=== PATIENT | female | born 1990 | race Caucasian/White ===

== ENCOUNTER 2017-07-22 18:18 | Emergency (ER) | payer OTHER ==
[~2017-07-22] VITALS: Ht 162.6 cm; Wt 100.0 kg
[~2017-07-22 18:18] MED LIST: BCP
[2017-07-22] MEDS ORDERED: ZIPRASIDONE 20 MG INJ IM ONE ×2 (18:30→19:01)
[2017-07-22] MEDS ORDERED: SODIUM CHLORIDE 0.9% 1,000ML IVBOLUS ONE (18:30)
[2017-07-22] MEDS ORDERED: SODIUM CHLORIDE FLUSH 10ML SYR IVF ONE (18:30)
[2017-07-22 18:58] LABS: HEMATOCRIT 43.5 % (34.6-47.8); HEMOGLOBIN 13.8 g/dL (11.7-16.4)
[2017-07-22 19:07] LABS: ASPARTATE AMINO TRANSFERASE 59 U/L (15-37); BLOOD UREA NITROGEN 8 mg/dL (7-18)
[2017-07-22] MEDS ORDERED: ONDANSETRON 2MG/ML, 2ML ONE (19:16)
[2017-07-22] MEDS ORDERED: HYDROmorphone 1 MG/ML, 1ML ONE ×2 (19:16→20:50)
[2017-07-22] MEDS ORDERED: ONDANSETRON 2MG/ML, 2ML IVPush ONE (19:30)
[2017-07-22] MEDS: HYDROmorphone 1 MG/ML, 1ML IVPush PRN ×2 (19:30→20:58)
[2017-07-22] MEDS ORDERED: OMNIPAQUE 350 MG/ML, 100ML BOTTLE ONE (20:30)
[2017-07-22] MEDS ORDERED: MAALOX/HYOSCYAMINE/LIDOCAINE 45 ML BTL PO ONE (21:00)
[2017-07-22] MEDS ORDERED: FAMOTIDINE 20 MG/2 ML IVP ONE (21:00)
[2017-07-22] MEDS ORDERED: METOCLOPRAMIDE 5 MG/ML, 2ML IVPush ONE (21:00)
[2017-07-22] MEDS ORDERED: METOCLOPRAMIDE 5 MG/ML, 2ML ONE (21:06)
[2017-07-22] MEDS ORDERED: FAMOTIDINE 20 MG/2 ML ONE (21:06)
[2017-07-22 22:55] VITALS: BP 114/67
[2017-07-23] MEDS ORDERED: PANT40TA5 PO (12:29)
[2017-07-23] MEDS ORDERED: MONT10TA6 PO (12:30)
== END 2017-07-22 23:12 | disposition home or self-care (01) ==
LOC: ED 19:43
DX: R10.13 Epigastric pain (principal); K21.9 Gastro-esophageal reflux disease without esophagitis; Z90.49 Acquired absence of other specified parts of digestive tract
CPT/HCPCS: 36415; 74177; 80053; 81003; 83690; 84703; 85025; 93005; 96361; 96372; 96374; 96375; 96376; 99285; J1170; J2405; J2765; J3486; J7030; Q9967; S0028

== ENCOUNTER 2017-07-23 05:28 | Inpatient (IN) | payer OTHER ==
[~2017-07-23] VITALS: Ht 162.6 cm; Wt 98.8 kg
[2017-07-23] MEDS ORDERED: SODIUM CHLORIDE 0.9% 1,000 ML IV ONE ×2 (06:41→09:37)
[2017-07-23] MEDS ORDERED: FAMOTIDINE 20 MG/2 ML IVP ONE (07:00)
[2017-07-23] MEDS ORDERED: SODIUM CHLORIDE 0.9% 1,000ML IVBOLUS ONE (07:00)
[2017-07-23] MEDS ORDERED: ONDANSETRON 2MG/ML, 2ML IVPush ONE (07:00)
[2017-07-23] MEDS ORDERED: HYDROmorphone 1 MG/ML, 1ML IVPush PRN (07:00)
[2017-07-23 07:04] LABS: HEMATOCRIT 39.2 % (34.6-47.8); HEMOGLOBIN 12.9 g/dL (11.7-16.4); WHITE BLOOD COUNT 11.5 x10^3/uL (3.4-10)
[2017-07-23 07:17] LABS: ASPARTATE AMINO TRANSFERASE 54 U/L (15-37); BLOOD UREA NITROGEN 10 mg/dL (7-18)
[2017-07-23] MEDS ORDERED: ONDANSETRON 2MG/ML, 2ML ONE ×2 (07:24→17:25)
[2017-07-23] MEDS ORDERED: HYDROmorphone 1 MG/ML, 1ML ONE (07:24)
[2017-07-23] MEDS ORDERED: FAMOTIDINE 20 MG/2 ML ONE (07:25)
[2017-07-23] MEDS ORDERED: ACETAMINOPHEN 325 MG TABLET ONE (07:57)
[2017-07-23] MEDS ORDERED: ACETAMINOPHEN 325 MG TABLET PO ONE (08:00)
[2017-07-23] MEDS ORDERED: SODIUM CHLORIDE FLUSH 10ML SYR IVF PRN (10:00)
[2017-07-23] MEDS ORDERED: ONDANSETRON 2MG/ML, 2ML IVPush PRN ×2 (10:00→11:30)
[2017-07-23] MEDS ORDERED: hydrALAzine 20 MG/ML, 1ML IVPush PRN (11:30)
[2017-07-23] MEDS: D5%-0.9% NACL+KCL 20MEQ 1,000 ML IV SCH ×2 (11:56→21:20)
[2017-07-23] MEDS: HEPARIN 5,000 UNITS/ML, 1ML SQ SCH ×2 (12:04→21:20)
[2017-07-23] MEDS: HYDROmorphone 2 MG/ML, 1ML IVPush PRN ×2 (12:04→17:14)
[2017-07-23 12:16] VITALS: BP 103/66
[2017-07-23] MEDS ORDERED: PANT40TA5 PO (12:29)
[2017-07-23] MEDS ORDERED: MONT10TA6 PO (12:30)
[2017-07-23 12:43] LABS: DAU SCREEN DISCLAIMER
[2017-07-23] MEDS ORDERED: NITROGLYCERIN 0.4 MG BOTTLE (25 TABS) SL ONE (14:00)
[2017-07-23] MEDS: ONDANSETRON 2MG/ML, 2ML IVPush PRN ×2 (17:26→21:23)
[2017-07-23 19:17] VITALS: BP 108/71
[2017-07-23] MEDS ORDERED: ASPIRIN 325 MG TABLET EC ONE (20:56)
[2017-07-23] MEDS ORDERED: LORazepam 2 MG/ML, 1ML ONE (20:57)
[2017-07-23] MEDS ORDERED: LORazepam 2 MG/ML, 1ML IVPush PRN (21:00)
[2017-07-23] MEDS ORDERED: ASPIRIN 325 MG TABLET PO ONE (21:00)
[2017-07-23] MEDS ORDERED: MAGNESIUM SULFATE PMX 4GM/100M 100 ML IV ONE (21:00)
[2017-07-23] MEDS ORDERED: NITROGLYCERIN 0.4 MG BOTTLE (25 TABS) SL PRN (21:00)
[2017-07-23] MEDS ORDERED: ALUMINUM/MAG/SIMETHICONE 30 ML UDC PO ONE (21:00)
[2017-07-23] MEDS: PANTOPROZOLE 40MG TABLET PO SCH (21:22)
[2017-07-23 21:36] LABS: IS PT STATUS REG ER OR PRE ER? NO
[2017-07-23] MEDS: MONTELUKAST 10 MG TABLET PO SCH (21:39)
[2017-07-24 00:20] VITALS: BP 126/85
[2017-07-24] MEDS: HYDROmorphone 2 MG/ML, 1ML IVPush PRN ×7 (00:22→23:44)
[2017-07-24 05:55] LABS: HEMATOCRIT 34.1 % (34.6-47.8); WHITE BLOOD COUNT 9.9 x10^3/uL (3.4-10)
[2017-07-24 06:32] LABS: ASPARTATE AMINO TRANSFERASE 67 U/L (15-37); BLOOD UREA NITROGEN 4 mg/dL (7-18)
[2017-07-24] MEDS: HEPARIN 5,000 UNITS/ML, 1ML SQ SCH ×3 (06:34→22:16)
[2017-07-24] MEDS: ONDANSETRON 2MG/ML, 2ML IVPush PRN ×3 (06:43→20:21)
[2017-07-24 08:00] VITALS: BP 101/67
[2017-07-24] MEDS ORDERED: POTASSIUM CHLORIDE 40 MEQ in SODIUM CHLORIDE 0.9% 500 ML IV ONE (08:00)
[2017-07-24] MEDS: PANTOPROZOLE 40MG TABLET PO SCH ×2 (08:55→20:22)
[2017-07-24] MEDS: CALCIUM CARBONATE 500 MG TABLET PO SCH ×2 (09:09→20:22)
[2017-07-24] MEDS ORDERED: HYDROmorphone 1 MG/ML, 1ML ONE ×4 (11:51→23:42)
[2017-07-24] MEDS: D5%-0.9% NACL+KCL 20MEQ 1,000 ML IV SCH (13:28)
[2017-07-24 13:30] VITALS: BP 100/70
[2017-07-24 20:12] VITALS: BP 111/78
[2017-07-24] MEDS: MONTELUKAST 10 MG TABLET PO SCH (20:22)
[2017-07-25 04:40] VITALS: BP 107/73
[2017-07-25] MEDS ORDERED: HYDROmorphone 1 MG/ML, 1ML ONE ×2 (04:44→21:06)
[2017-07-25] MEDS: HYDROmorphone 2 MG/ML, 1ML IVPush PRN ×2 (04:46→21:09)
[2017-07-25] MEDS: ONDANSETRON 2MG/ML, 2ML IVPush PRN ×3 (04:46→21:08)
[2017-07-25 05:21] LABS: HEMATOCRIT 34.3 % (34.6-47.8); WHITE BLOOD COUNT 8.8 x10^3/uL (3.4-10)
[2017-07-25 05:27] LABS: BLOOD UREA NITROGEN 4 mg/dL (7-18)
[2017-07-25 05:30] LABS: ASPARTATE AMINO TRANSFERASE 64 U/L (15-37)
[2017-07-25] MEDS: HEPARIN 5,000 UNITS/ML, 1ML SQ SCH ×3 (06:38→23:26)
[2017-07-25 06:45] VITALS: BP 112/75
[2017-07-25] MEDS: PANTOPROZOLE 40MG TABLET PO SCH ×2 (09:03→21:09)
[2017-07-25] MEDS: OXYcodone IR 5MG TABLET PO PRN ×4 (09:03→23:27)
[2017-07-25] MEDS: CALCIUM CARBONATE 500 MG TABLET PO SCH (09:03)
[2017-07-25 12:29] VITALS: BP 107/75
[2017-07-25] MEDS: DOCUSATE 100 MG CAPSULE PO PRN (14:04)
[2017-07-25] MEDS: SODIUM CHLORIDE 0.9% 1,000 ML IV SCH ×2 (17:27→23:27)
[2017-07-25] MEDS: METOCLOPRAMIDE 5 MG/ML, 2ML IVPush SCH ×2 (17:27→23:26)
[2017-07-25 20:03] VITALS: BP 117/82
[2017-07-25] MEDS: MONTELUKAST 10 MG TABLET PO SCH (21:09)
[2017-07-26 04:41] VITALS: BP 107/69
[2017-07-26] MEDS: OXYcodone IR 5MG TABLET PO PRN (05:22)
[2017-07-26] MEDS: METOCLOPRAMIDE 5 MG/ML, 2ML IVPush SCH ×4 (05:22→23:11)
[2017-07-26] MEDS: HEPARIN 5,000 UNITS/ML, 1ML SQ SCH ×3 (06:53→23:11)
[2017-07-26 07:05] VITALS: BP 110/74
[2017-07-26] MEDS: SODIUM CHLORIDE 0.9% 1,000 ML IV SCH ×2 (08:54→18:54)
[2017-07-26] MEDS: PANTOPROZOLE 40MG TABLET PO SCH ×2 (08:54→20:22)
[2017-07-26] MEDS: ONDANSETRON 2MG/ML, 2ML IVPush PRN ×2 (08:58→16:56)
[2017-07-26 11:19] LABS: TOTAL IRON BINDING CAPACITY 264 mcg/dL (250-450)
[2017-07-26 13:25] VITALS: BP 109/75
[2017-07-26] MEDS: POLYETHYLENE GLYCOL 17 GM PACKET PO PRN ×2 (17:20→18:58)
[2017-07-26 20:20] VITALS: BP 107/75
[2017-07-26] MEDS: DOCUSATE 100 MG CAPSULE PO PRN (20:22)
[2017-07-26] MEDS: MONTELUKAST 10 MG TABLET PO SCH (20:22)
[2017-07-27 04:20] VITALS: BP 99/55
[2017-07-27] MEDS: SODIUM CHLORIDE 0.9% 1,000 ML IV SCH ×2 (04:20→14:00)
[2017-07-27] MEDS: HEPARIN 5,000 UNITS/ML, 1ML SQ SCH ×2 (06:43→14:13)
[2017-07-27] MEDS: METOCLOPRAMIDE 5 MG/ML, 2ML IVPush SCH ×2 (06:43→10:50)
[2017-07-27 07:53] VITALS: BP 116/83
[2017-07-27] MEDS: PANTOPROZOLE 40MG TABLET PO SCH (09:50)
[2017-07-27] MEDS ORDERED: METO5TAB57 PO (10:09)
[2017-07-27 14:30] VITALS: BP 110/78
== END 2017-07-27 16:00 | disposition home or self-care (01) | DRG 391 ==
LOC: ED 06:22 → EDIP 09:37 → 4NOR 11:15
PROVIDERS: ADMIT Hospitalist; ATTEND Hospitalist
DX: K31.84 Gastroparesis (principal); N17.0 Acute kidney failure with tubular necrosis; R65.10 Systemic inflammatory response syndrome (SIRS) of non-infectious origin without acute organ dysfunction; E87.2 Acidosis; E86.0 Dehydration; E87.6 Hypokalemia; K21.9 Gastro-esophageal reflux disease without esophagitis; K22.70 Barrett's esophagus without dysplasia; E28.2 Polycystic ovarian syndrome; E66.9 Obesity, unspecified; Z68.37 Body mass index [BMI] 37.0-37.9, adult; Z91.018 Allergy to other foods; Z79.899 Other long term (current) drug therapy; Z82.49 Family history of ischemic heart disease and other diseases of the circulatory system; Z83.3 Family history of diabetes mellitus; Z86.19 Personal history of other infectious and parasitic diseases; Z90.49 Acquired absence of other specified parts of digestive tract
CPT/HCPCS: 36415; 71010; 74000; 80053; 80061; 80307; 81003; 82947; 83036; 83540; 83550; 83690; 83735; 84439; 84443; 84484; 84703; 85025; 87046; 87324; 87328; 87329; 87899; 89055; 93005; 96361; 96374; 96375; J1170; J1644; J2405; J3480; G0479; J2060; J2765; J3475; J7030; J7040; S0028

== ENCOUNTER 2017-10-26 08:47 | Emergency (ER) | payer OTHER ==
[~2017-10-26] VITALS: Ht 162.6 cm; Wt 95.6 kg
[~2017-10-26 08:47] MED LIST changes: +METO5TAB57 PO; +MONT10TA6 PO; +PANT40TA5 PO
[2017-10-26] MEDS ORDERED: METOCLOPRAMIDE 5 MG/ML, 2ML ONE (09:22)
[2017-10-26] MEDS ORDERED: SODIUM CHLORIDE 0.9% 1,000ML IVBOLUS ONE (09:30)
[2017-10-26] MEDS ORDERED: METOCLOPRAMIDE 5 MG/ML, 2ML IVPush ONE (09:30)
[2017-10-26 09:45] LABS: BASOPHILS # (AUTO) 0.03 x10^3/uL (0-0.1); BASOPHILS % (AUTO) 0 % (0-1); EOSINOPHILS % (AUTO) 4 % (1-7); LYMPHOCYTES # (AUTO) 2.04 x10^3/uL (1-3.4); LYMPHOCYTES % (AUTO) 18 % (22-44); MD NO; MEAN CORPUSCULAR HEMOGLOBIN 19.9 pg (27.0-34.8); MEAN CORPUSCULAR HGB CONC 31.9 g/dL (32.4-35.8); MEAN CORPUSCULAR VOLUME 62.3 fL (80-100); MEAN PLATELET VOLUME 8.7 fL (7.4-10.4); MONOCYTES # (AUTO) 0.53 x10^3/uL (0.2-0.8); MONOCYTES % (AUTO) 5 % (2-9); NEUTROPHILS % (AUTO) 73 % (42-75); PLATELET COUNT 238 x10^3/uL (130-400); RED BLOOD COUNT 6.27 x10^6/uL (3.82-5.3); RED CELL DISTRIBUTION WIDTH 15.5 % (9.6-15.2)
[2017-10-26 09:55] LABS: ALANINE AMINOTRANSFERASE 31 U/L (12-78); ALBUMIN 3.2 g/dL (3.4-5.0); ANION GAP 8 mmol/L (5-15); CALCIUM 8.5 mg/dL (8.5-10.1); CHLORIDE 111 mmol/L (98-107); CREATININE 0.83 mg/dL (0.55-1.02)
[2017-10-26 09:57] LABS: ALKALINE PHOSPHATASE 87 U/L (45-117); BILIRUBIN,TOTAL 0.4 mg/dL (0.2-1.0); TOTAL PROTEIN 7.4 g/dL (6.4-8.2)
[2017-10-26] MEDS ORDERED: MAALOX/HYOSCYAMINE/LIDOCAINE 45 ML BTL ONE (10:08)
[2017-10-26 10:21] VITALS: BP 106/59
[2017-10-26 10:22] LABS: CULTURE INDICATED? YES; MICROSCOPIC INDICATED
[2017-10-26] MEDS ORDERED: MAALOX/HYOSCYAMINE/LIDOCAINE 45 ML BTL PO ONE (10:30)
== END 2017-10-26 11:16 | disposition home or self-care (01) ==
LOC: ED 10:14
DX: R10.13 Epigastric pain (principal)
CPT/HCPCS: 36415; 80053; 81001; 83690; 85025; 87086; 96361; 96374; 99284; J2765; J7030